=== PATIENT | female | born 1985 | race Caucasian/White ===

== ENCOUNTER 2016-07-15 14:09 | Emergency (ER) | payer OTHER ==
[~2016-07-15] VITALS: Ht 160 cm; Wt 50.5 kg
[2016-07-15 14:15] VITALS: BP 118/79; PULSE 86; RESP 15; O2SAT 96
--- NOTE | 2016-07-15 14:27 | ED.REPORT ---
HPI-General Illness Date of Service Jul 15, 2016 ED Provider: aDnilo Hayden MD Pt is a 31 y/o female w/ a long history of alcohol abuse presenting to the ED with her boyfriend for medical clearance for alcohol detox. The patient has been drinking about 3.5-4 liters of wine each day for 3 weeks. She got out of rehab in May of last year and relapsed. 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 Her last drink was at 12:00 today. Her last menstrual period was May 31. She has a history of irregular menstrual cycles. She is asymptomatic at current time. She denies vomiting, hallucinations, seizures, shaking. Nursing Notes Stated Complaint: CLEARANCE FOR CRISIS Chief Complaint: Substance Abuse Nursing Notes Reviewed: Yes Allergies: Coded Allergies: No Known Allergies (Unverified , 07/15/16) General Time Seen by MD: 14:24 Chief Complaint Other (Med clearance) Hx Obtained From: Patient Arrived By: Walk-in Sudden in Onset?: No Onset Occurred: More than a week ago... (3 weeks) Symptom Duration: Since onset Severity: Current: No pain currently Severity: Maximum: No pain Recent Healthcare: Previous diagnosis Similar Sx Previous: Yes Past Medical History Past Medical History Long history of alcohol abuse Otherwise denies Past Surgical History None reported Smoking History Unknown if Ever Smoker Social History Drinks 3.5-4 liters of wine each day Alcohol Use: >5 per day Ambulatory Status Independent Review of Systems Full Review of Systems GI: Denies: Vomiting Neurologic: Denies: Shaking Psychiatric: Denies: Hallucinations, auditory, Hallucinations, visual Complete sys rev & neg: except as marked. Physical Exam Vital Signs Vital Signs Date Time Temp Pulse Resp B/P Pulse Ox O2 Delivery O2 Flow Rate FiO2 07/15/16 14:15 36.6 86 15 118/79 96 Room Air Initial VS: Reviewed, Vital signs normal Head / Eyes: Atraumatic, Normocephalic, PERRL ENT: Mucous membranes moist, Conjunctiva normal, No scleral icterus Neck: Supple, Full range of motion Respiratory: Breath sounds normal, Clear to auscultation, No respiratory distress Cardiovascular: Regular rate & rhythm, Heart sounds normal, Intact distal pulses Abdomen / GI: Soft, Non-tender, No guarding, No rebound, No distention Extremities: Vascular intact, Neuro intact, No swelling, No tenderness Skin: Warm, Dry, No cyanosis Neurologic: Alert, Oriented, Nonfocal Psychiatric: Mood/affect normal, Behavior normal, Normal thought content General/Constitutional: Awake, Alert, No acute distress, Well appearing, Cooperative, Not toxic appearing Re-Eval/Medical Decision Med Decision/Clinical Course Pt is a 31 y/o female w/ a long history of alcohol abuse presenting to the ED with her boyfriend for medical clearance for alcohol detox. Here in the emergency department she is afebrile stable vital signs and no apparent distress. Her last drink was approximately 3 hours ago and she does not demonstrate any signs of acute alcohol withdrawal. She is without suicidal or homicidal ideation. She is linear/organized and wishes to stop drinking alcohol. Bedside test was negative, urinalysis showed no signs of UTI and urine drug screen was negative. Patient was prescribed an Ativan taper which will be filled for her by staff at detox facility. She requested medication to help sleep and she was prescribed Adderall as needed at night. She was discharged to crisis resp[facility] in stable condition for alcohol detox. Follow-up and return precautions were reviewed in detail and she was understanding and agreement with the plan. Time of Eval: 14:32 Re-Evaluation/Progress Note: Pt rechecked. Informed pt of plan for treatment. Pt understands and agrees with plan for treatment. F/U and RTER warnings given. All questions addressed. Counseled Regarding: Diagnosis, Need for follow-up, When/why to return to ED Discharge & Departure Primary Impression: Alcohol abuse Additional Impression: Encounter for alcohol rehabilitation Disposition: Home Discharge Condition All VS Reviewed: Yes Condition: Stable Patient Instructions: Abuse of Alcohol (ED), Alcohol Withdrawal (ED) Additional Instructions: Go directly to [facility] as scheduled today. Take the Ativan taper as prescribed. Do not miss any doses. Return to the emergency department if you experience symptoms of withdrawal that Crisis can not manage such as hallucinations, persistent vomiting, seizure , or other worsening symptoms. Referrals: [facility] Scribe Attestation Portions of this note were transcribed by Andrew Dimas. I, Dr. Hayden personally performed the history, physical exam and medical decision-making; I reviewed and confirmed the accuracy of the information in the transcribed note. Signed by Dorota Millan, 07/15/16 - [id number] Danilo Hayden MD Jul 15, 2016 14:27 ANDREW DIMAS Jul 15, 2016 14:36 ANDREW DIMAS Jul 15, 2016 14:36
== END 2016-07-15 17:46 | disposition home or self-care (01) ==
LOC: SED 14:09
DX: F10.20 Alcohol dependence, uncomplicated (principal); Z76.89 Persons encountering health services in other specified circumstances; Z87.42 Personal history of other diseases of the female genital tract